=== PATIENT | male | born 1950 | race Hispanic/Latino ===

== ENCOUNTER 2017-05-26 06:48 | Outpatient (CLI) | payer BC ==
--- NOTE | 2017-05-26 08:48 | RAD ---
BARIUM SWALLOW AND UPPER GI: Date: 05/26/17 HISTORY: 66-year-old male with history of dysphagia. FLUOROSCOPY TIME: Fluoroscopy time was 2.3 minutes with a dose of 178.86 mGy*cm^2. FINDINGS: There was normal swallowing function. The esophagus shows no stricture, ulcer, or mass. There is a mo derate to large sliding type hiatal hernia. In addition to the hiatal hernia, there is an outpouching posteriorly off the region of the fundus, probably an associated gastric fundal diverticulum. No cornel dence for stricture, ulcer, or mass. There was no evidence for reflux. Pylorus, duodenal bulb, and c- loop are unremarkable, except for incidental duodenal diverticulum. IMPRESSION: Moderate to large sliding hiatal hernia without evidence of reflux. Probable associated gastric steven l posteriorly located diverticulum. Duodenal diverticulum. No other significant acute process. POS: [facility]
== END 2017-05-26 06:49 | disposition home or self-care (01) ==
LOC: RAD 06:48
PROVIDERS: ATTEND Internal Medicine Gastroenterology
DX: R13.10 Dysphagia, unspecified (principal); K44.9 Diaphragmatic hernia without obstruction or gangrene; K57.10 Diverticulosis of small intestine without perforation or abscess without bleeding
CPT/HCPCS: 74247

== ENCOUNTER 2017-10-01 15:28 | Outpatient (CLI) | payer BC ==
[2017-10-01 16:32] LABS: Hemoglobin 14.6 g/dL (14.0-18.0); Mean Corpuscular HGB CONC 34.7 g/dL (32.0-36.0); Mean Corpuscular Hemoglobin 30.2 pg (27.0-31.0); Mean Corpuscular Volume 87.1 fL (78.0-98.0); Mean Platelet Volume 7.3 fL (7.4-10.4); Platelet Count 288 thou/uL (130-400); RBC Distribution Width 12.3 % (11.5-14.5); Red Blood Cell (RBC) Count 4.83 mill/uL (4.70-6.10); White Blood Cell (WBC) Count 7.9 thou/uL (4.8-10.8)
--- NOTE | 2017-10-01 16:33 | RAD ---
CHEST PA AND LATERAL: 10/01/17 HISTORY: 66-year-old male for preoperative evaluation. FINDINGS: Moderate sized hiatal hernia. Heart size is within normal limits. The lungs are clear. Mild biapical pleural thickening. IMPRESSION: Moderate sized hiatal hernia. Atherosclerosis of the aorta with ectasia. Biapical pleural thickening. No acute intrathoracic disease. POS: [facility]
[2017-10-01 16:34] LABS: Bilirubin Negative (Negative); Blood, Urine Negative (Negative); Clarity CLEAR (Clear); Glucose, Urine (Dipstick) Negative (Negative); Leukocyte Small (Negative); Nitrite Negative (Negative); Protein, Urine (Dipstick) Negative (Neg-Trace); Specific Gravity, Urine 1.022 (1.002-1.036); Urobilinogen 0.2 mg/dL (0.2-1.0)
[2017-10-01 16:38] LABS: Bacteria/HPF None Seen HPF (None Seen); Hyaline Casts/LPF 0-3 HYALINE CAST LPF (0-3 Hyaline); Pathc Cast-AUWi Flag 0.14 (0-2.49); RBC/HPF 0-3 HPF (0-3); Squamous Epithelial None Seen HPF (0-3); WBC/HPF 0-3 HPF (0-3)
[2017-10-01 16:39] LABS: INR-International Normal Ratio 0.9; PTT 30.5 SEC (22.9-36.1); Prothrombin Time 12.6 SEC (12.0-14.7)
[2017-10-01 16:50] LABS: Anion Gap 18 mmol/L (10-20); BUN (Urea Nitrogen) 21 mg/dL (8.4-25.7); Calc. Creatinine Clearance 0 mL/min (70-130); Calcium 9.8 mg/dL (7.8-10.44); Carbon Dioxide 22 mmol/L (23-31); Chloride 104 mmol/L (98-107); Estimated GFR-MDRD 70; Glucose 96 mg/dL (80-115); Potassium 4.3 mmol/L (3.5-5.1); Sodium 140 mmol/L (136-145)
--- NOTE | 2017-10-03 15:12 | EKG ---
Test Reason : Blood Pressure : / mmHG Vent. Rate : 070 BPM Atrial Rate : 070 BPM P-R Int : 134 ms QRS Dur : 092 ms QT Int : 390 ms P-R-T Axes : 045 050 044 degrees QTc Int : 421 ms Normal sinus rhythm Normal ECG When compared with ECG of 18-MAY-2013 06:55, Nonspecific T wave abnormality has replaced inverted T waves in Inferior leads Confirmed by MICHELLE ZAMAN, JAILENE ([id number]) on 10/03/2017 3:11:56 PM Referred By: DENISSE Confirmed By:JAILENE MARTINEZ MD
== END 2017-10-01 15:29 | disposition home or self-care (01) ==
LOC: LABBT 15:28
PROVIDERS: ATTEND Urology
DX: Z01.818 Encounter for other preprocedural examination (principal); N47.1 Phimosis; K44.9 Diaphragmatic hernia without obstruction or gangrene; I70.0 Atherosclerosis of aorta; I77.819 Aortic ectasia, unspecified site; J92.9 Pleural plaque without asbestos
CPT/HCPCS: 71046; 80048; 81001; 85027; 85610; 85730; 87086; 93005; 93010

== ENCOUNTER 2017-10-15 07:23 | Day surgery (SDC) | payer BC ==
[2017-10-01 15:43] VITALS: BMI 28.9
[2017-10-15] MEDS ORDERED: Fentanyl 100 MCG/2 ML VIAL ONE ×2 (08:49→09:17)
[2017-10-15] MEDS ORDERED: Midazolam HCl 2 mg/2 ml Vial ONE (08:49)
[2017-10-15] MEDS ORDERED: Bacitracin Zinc 1 Packet ONE (09:00)
[2017-10-15] MEDS ORDERED: Bupivacaine 0.25% HCL 30 ML VIAL ONE (09:00)
[2017-10-15] MEDS ORDERED: Bacitracin Zinc Ointment 30 gm TUBE ONE (09:02)
[2017-10-15] MEDS ORDERED: CEFAZOLIN/Water 2 GM/20 ML SYRINGE ONE (09:22)
--- NOTE | 2017-10-15 11:42 | OP ---
DATE OF SERVICE: 10/15/2017 PREOPERATIVE DIAGNOSES: Chronic prepucial discomfort with frenular adhesion. POSTOPERATIVE DIAGNOSES: Chronic prepucial discomfort with frenular adhesion. PROCEDURE PERFORMED: Circumcision. SURGEON: Leola Kim D.O. ANESTHESIA: LMA. COMPLICATIONS: None apparent. DISPOSITION: To the recovery room in stable condition. SPECIMEN: Foreskin. ESTIMATED BLOOD LOSS: Minimal. INDICATIONS FOR THE PROCEDURE AND HISTORY: Mr. Washington is a pleasant 66-year- old male with history of impotence, who desired to proceed with elective circumcision due to significant prepucial discomfort. Physical exam demonstrated chronic irritation and frenular adhesion. Risks and complications of the procedure was reviewed including, but not limited to, chronic pain, bleeding, infection, wound complication, penile discomfort. All questions answered to his satisfaction, he desired to proceed. DESCRIPTION OF THE PROCEDURE: After an informed consent is signed, the patient is taken to the operating room, placed in a supine position with the genital area prepped and draped in the usual surgical sterile fashion. Broad-spectrum antibiotics and bilateral SCDs were placed. We marked the foreskin at the level of the glans. He does have a frenular adhesion, which was reduced with Metzenbaum scissors. The foreskin was marked at the level of the coronal sulcus and a circumferential incision was performed with a 15 blade. The ring of foreskin was divided with electrocautery. We obtained good hemostasis of the dartos fascia as needed. A 2-0 chromic suture was utilized to perform the circumcision reapproximation in an interrupted fashion. An inverted U stitch was placed at the level of the frenulum. As there was a defect from the excision of a frenular adhesion, I did reapproximate the glans at this level using 4-0 chromic. He tolerated the procedure well. Bacitracin ointment and pressure dressing is applied with Coban. Approximately 10 mL of 0.25% Marcaine was utilized for penile block. He tolerated the procedure well and transported to the recovery room in stable condition. He will follow up with me next Friday. He is discharged with a short course of [place] 5/325, Keflex, Colace. CICI
== END 2017-10-15 14:55 | disposition home or self-care (01) ==
LOC: SDC 07:23
PROVIDERS: ATTEND Urology
PROC: 0VTTXZZ Resection of Prepuce, External Approach (ICD-10-PCS; principal; 2017-10-15)
DX: N47.1 Phimosis (principal); N40.1 Benign prostatic hyperplasia with lower urinary tract symptoms; R35.0 Frequency of micturition; N28.1 Cyst of kidney, acquired
CPT/HCPCS: 88304; J2250; J3010; S0020

== ENCOUNTER 2017-10-25 01:55 | Emergency (ER) | payer BC ==
[2017-10-25] MEDS ORDERED: Mag-Al 1200 mg/1200 mg/30 ML UDCUP ONE (02:47)
[2017-10-25] MEDS ORDERED: Lidocaine Viscous Sol 2% 15 ml UD Cup ONE (02:47)
--- NOTE | 2017-10-25 08:10 | RAD ---
PORTABLE CHEST: Date: 10/25/17 PROVIDED CLINICAL HISTORY: Chest pain. FINDINGS: Comparison made with study dated 10/01/17. The cardiac silhouette is prominent, at least partially on the basis of portable technique. Large hia dayday hernia is seen. No focal consolidation, pleural fluid, or pneumothorax apparent. IMPRESSION: 1. No evidence for an acute cardiopulmonary process. 2. Large hiatal hernia. POS: [facility]
--- NOTE | 2017-11-01 12:19 | EKG ---
Test Reason : Blood Pressure : / mmHG Vent. Rate : 081 BPM Atrial Rate : 081 BPM P-R Int : 134 ms QRS Dur : 092 ms QT Int : 388 ms P-R-T Axes : 013 -07 -20 degrees QTc Int : 450 ms Normal sinus rhythm Normal ECG Confirmed by EH BERNARD ([id number]), medical transcription editor BHARGAV LONG ([id number]) on 11/01/2017 12:19:13 PM Referred By: Confirmed By:EH BERNARD
== END 2017-10-25 03:26 | disposition home or self-care (01) ==
LOC: ERS 01:55
DX: K22.2 Esophageal obstruction (principal); Z79.84 Long term (current) use of oral hypoglycemic drugs; Z79.899 Other long term (current) drug therapy
CPT/HCPCS: 71045; 93005

== ENCOUNTER → 2017-11-13 | Day surgery (SDC) | payer BC | LOC: SDC 07:15 | PROVIDERS: ATTEND Internal Medicine Gastroenterology | DX: R13.19 Other dysphagia (principal); K22.2 Esophageal obstruction; K21.9 Gastro-esophageal reflux disease without esophagitis; R07.9 Chest pain, unspecified; Z79.84 Long term (current) use of oral hypoglycemic drugs; Z79.899 Other long term (current) drug therapy | CPT/HCPCS: 91010; 91034 ==

== ENCOUNTER 2018-08-27 10:16 | Outpatient (CLI) | payer BC ==
--- NOTE | 2018-08-27 10:33 | RAD ---
XR Foot Lt 2 View HISTORY: Pain in the left heel FINDINGS: No fracture or dislocation is identified. A tiny plantar calcaneal spur may be present.
== END 2018-08-27 10:17 | disposition home or self-care (01) ==
LOC: BICRAD 10:16
PROVIDERS: ATTEND Family Medicine
DX: M79.672 Pain in left foot (principal)

== ENCOUNTER 2018-12-26 19:42 | Emergency (ER) | payer BC ==
[2018-12-26] MEDS ORDERED: Ondansetron ODT 8 MG TAB ONE (20:07)
[2018-12-26] MEDS ORDERED: Ketorolac Tromethamine 30 MG/ML VIAL ONE (20:07)
[2018-12-26] MEDS ORDERED: Lidocaine Viscous Sol 2% 15 ml UD Cup ONE (20:23)
[2018-12-26] MEDS ORDERED: Mag-Al 1200 mg/1200 mg/30 ML UDCUP ONE (20:23)
[2018-12-26] MEDS ORDERED: EPINEPHrine 1 MG/ML AMP ONE (20:55)
[2018-12-26] MEDS ORDERED: Dexamethasone 10 MG/ML VIAL ONE (20:55)
--- NOTE | 2018-12-26 22:02 | RAD ---
ABDOMEN ONE VIEW: 12/26/18 HISTORY: Abdominal pain. FINDINGS/IMPRESSION: The bowel gas pattern is unremarkable. No suspicious calcifications are seen. There are degenerative changes in the spine. POS: [facility]
== END 2018-12-26 22:24 | disposition home or self-care (01) ==
LOC: ERS 19:42
DX: R10.13 Epigastric pain (principal); E11.9 Type 2 diabetes mellitus without complications; Z79.84 Long term (current) use of oral hypoglycemic drugs
CPT/HCPCS: 74018; 96372; J0171; J1100; J1885

== ENCOUNTER 2024-02-16 11:41 | Outpatient (CLI) | payer MEDICARE, BC ==
[~2024-02-16 11:41] MED LIST: Iopamidol 370 76% 100 ML VIAL ONE
== END 2024-02-16 11:42 | disposition home or self-care (01) ==
LOC: CT 11:41
PROVIDERS: ATTEND Radiology Radiation Oncology
DX: C07 Malignant neoplasm of parotid gland (principal); J38.7 Other diseases of larynx; Z90.89 Acquired absence of other organs
CPT/HCPCS: 36415; 70491; 82565